=== PATIENT | male | born 1960 | race Caucasian/White ===

== ENCOUNTER 2021-06-21 19:16 | Emergency (ER) | payer OTHER, SELFPAY ==
--- NOTE | ~2021-06-21 | CT_ITS ---
EXAMINATION: CT CHEST WITHOUT CONTRAST CLINICAL INFORMATION: Fall, clavicle pain COMPARISON: Shoulder radiographs 06/21/2021 TECHNIQUE: Multidetector volumetric CT imaging of the chest was done. Axial MIP volume rendering provided. Sagittal and coronal reformatted images were obtained. This CT examination was performed using dose optimization techniques as appropriate, variously including the following: *Automated exposure control *Adjustment of mA and/or kV according to patient size (this includes techniques or standardized protocols for targeted exams where dose is matched to indication/reason for exam; i.e. extremities or head) *Use of iterative reconstruction technique DLP: 394 mGy-cm FINDINGS: LUNGS: Bibasilar atelectasis. Motion degradation somewhat limits evaluation of the pulmonary parenchyma. Millimeters solid left lower lobe pulmonary nodule, 9:380. MEDIASTINUM: Heart is normal in size. No mediastinal lymphadenopathy. Lack of intravenous contrast limits evaluation for hilar lymphadenopathy. No bulky hilar lymphadenopathy appreciated. Great vessels are normal in caliber. . PLEURA: There is no pleural effusion. No pleural mass or thickening. AXILLA: No lymphadenopathy. UPPER ABDOMEN: Hypoattenuating hepatic parenchyma suggestive of hepatic steatosis. OSSEOUS STRUCTURES: Distal clavicles were incompletely imaged on this dedicated chest CT. On the most superior slice along the superior margin of the imaged distal clavicle right clavicle is an osseous fragment which appears discontiguous with the remainder of the clavicle however appears to have sclerotic margins. CT/CT chest wo con IMPRESSION: Distal clavicles were incompletely imaged on this dedicated chest CT. On the most superior slice along the superior margin of the imaged distal clavicle right clavicle is an osseous fragment which appears discontiguous with the remainder of the clavicle however appears to have sclerotic margins. It is unclear if this could reflect volume averaging of a osseous protuberance along the non imaged clavicle or a partially imaged fracture fragment from a non imaged fracture. Given provided clinical history consider dedicated CT shoulder. A 3 mm solid left lower lobe pulmonary nodule. Assuming patient has no history of malignancy, recommend follow-up per Fleischner Society recommendations. According to the UPDATED 2017 Fleischner Society recommendations, the advised followup imaging for solid nodules < 6 mm is: LOW RISK PATIENT: No routine follow up. HIGH RISK PATIENT: Optional CT at 12 months.
--- NOTE | ~2021-06-21 | XR_ITS ---
EXAMINATION: XR SHOULDER, RIGHT CLINICAL INFORMATION: Fall on ice. COMPARISON: None TECHNIQUE: Four views of the right shoulder. FINDINGS: No acute fractures or malalignment. The humeral head is well-seated in the glenoid. The acromioclavicular joint and coracoid process are intact. 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 No unexpected foreign bodies. XR/XR shoulder RT min 2V IMPRESSION: No acute fractures or malalignment.
[2021-06-21 19:35] VITALS: BP 179/80; PULSE 110; RESP 20; TEMP 36.8; O2SAT 98; BMI 29.1
--- NOTE | 2021-06-21 21:48 | ED_ITS ---
HPI - Fall General Chief Complaint: Fall Stated Complaint: Fall @ work/ R shoulder pain Time Seen by Provider: 06/21/21 21:47 Source: patient Mode of arrival: ambulatory History of Present Illness HPI Narrative: This is a 60-year-old male brought in by his son for having fallen on ice today and landed on his right shoulder and states he has had significant pain afterwards and denies any numbness, tingling but is having significant pain. Related Data Allergies Allergy/AdvReac Type Severity Reaction Status Date / Time No Known Allergies Allergy Verified 06/21/21 21:47 Review of Systems Review of Systems: Pertinent positives and negatives as stated in HPI 10 point review of systems is otherwise negative. [facility] Past Medical History Source: nursing notes reviewed Social History Social History Advance Directives: No Advance Directives Information Provided: No Physical Exam Vital Signs: Vital Signs: Last Vital Signs Temp 98.2 F 06/21/21 19:35 Pulse 110 H 06/21/21 19:35 Resp 20 06/21/21 19:35 BP 179/80 H 06/21/21 19:35 Pulse Ox 98 06/21/21 19:35 BMI result Body Mass Index 29.1 VITAL SIGNS: Reviewed. GENERAL: Well developed, well nourished, in no acute distress. HEAD: Normocephalic/atraumatic EYES: PERRLA, EOMI OROPHARYNX: no oral lesions noted, posterior pharynx clear LUNGS: Normal breath sounds. No adventitious sounds or accessory muscle use. SpO2<98> CARDIOVASCULAR: Regular rate and rhythm without noted murmurs ABDOMEN: Soft, non-tender, non-distended with bowel sounds. 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 NEUROLOGIC: Alert and oriented x 4. Course Course Course Narrative: 60-year-old male with history and clinical presentation initially suspicious for possible dislocation but on review of imaging there are no acute findings to suggest dislocation or fracture. After clinical exam will proceed with CT of the chest, noncontrast to evaluate for possible distal clavicular fracture or possible occult humeral fracture. If this is negative patient likely has significant rotator cuff injury and will be placed in a sling and provided with an orthopedic follow-up. Patient received combination analgesics. Review of all investigations otherwise negative for acute bony abnormalities, th ere is some question on the CT scan, however as it would not change current treatment modality patient will be placed in a sling and provided with an orthopedic referral and instructions to call on Thursday. Discharge Plan Discharge Clinical Impression: Injury of right shoulder Patient Disposition: Home, Self-Care Instructions: Shoulder Pain (ED) Additional Instructions: 1. Tylenol 1000 mg, orally, every 6 hours as needed for pain control. Do not exceed 4000 mg within 24 hours. 2. Ibuprofen 400 mg, orally with milk or food, every 6 hours as needed for pain control. 3. Lidocaine patch, these are available [id number] at every [facility], and should be apply to area of maximal pain as directed on the outside packaging. 4. You have been provided with a referral to see Orthopedics, the information is below. Return to the ER for worsening symptoms. Stand Alone Forms: Work/School Release
[2021-06-21] MEDS: Acetaminophen 325 MG TABLET 975 MG PO (22:29)
[2021-06-21] MEDS: Lidocaine 4 % Patch ADH..PATCH 1 PATCH TRANSDERMA (22:30)
[2021-06-21] MEDS: Ketorolac Tromethamine 30 MG/ML VIAL 15 MG IM (22:31)
== END 2021-06-22 00:37 | disposition home or self-care (01) ==
PROVIDERS: Emergency Provider Student in an Organized Health Care Education/Training Program
DX: S49.91XA Unspecified injury of right shoulder and upper arm, initial encounter (principal); W00.0XXA Fall on same level due to ice and snow, initial encounter; Y93.9 Activity, unspecified; Y92.9 Unspecified place or not applicable; Y99.0 Civilian activity done for income or pay
CPT/HCPCS: 71250; 73030; 96372; 99284; J1885